=== PATIENT | female | born 1995 | race Caucasian/White ===

== ENCOUNTER 2021-04-04 20:06 | Emergency (ER) | payer OTHER ==
[~2021-04-04] VITALS: Ht 167.6 cm; Wt 72.7 kg
--- NOTE | 2021-04-04 20:28 | PHYS DOC ---
General Adult EDM: Chief Complaint: SHORTNESS OF BREATH HPI: HPI: Patient is a 25-year-old female who presents to the emergency department short for shortness of breath. Patient reports wheezing. She is able to speak in full clear sentences. Patient is also reporting a dry cough, describing bronchospasm, fevers, nausea, sick exposures. Review of Systems: Review of Systems: 14 body systems of the review of systems have been reviewed. See HPI for pertinent positive and negative responses, otherwise all other systems are n egative, nonpertinent or noncontributory Heart Score: C/O Chest Pain: No Risk Factors: Risk Factors: DM, Current or recent (<one month) smoker, HTN, HLP, family history of CAD, obesity. Risk Scores: Score 0 - 3: 2.5% MACE over next 6 weeks - Discharge Home Score 4 - 6: 20.3% MACE over next 6 weeks - Admit for Clinical Observation Score 7 - 10: 72.7% MACE over next 6 weeks - Early Invasive Strategies Physical Exam: PE: Constitutional: Well developed, well nourished, no acute distress, non-toxic appearance. [] HENT: Normocephalic, atraumatic, bilateral external ears normal, oropharynx moist, no oral exudates, nose normal. [] Eyes: PERRL, EOMI, conjunctiva normal, no discharge. [] Neck: Normal range of motion, no tenderness, supple, no stridor. [] Cardiovascular:Heart rate tachycardic rhythm, no murmur [] Lungs & Thorax: Wheezing noted throughout Abdomen: Bowel sounds normal, soft, no tenderness, no masses, no pulsatile masses. [] Skin: Warm, dry, no erythema, no rash. [] Back: Normal range of motion Extremities: No tenderness, no cyanosis, no clubbing, ROM intact, no edema. [] Neurologic: Alert and oriented X 3, normal motor function, normal sensory function, no focal deficits noted. [] Psychologic: Affect normal, judgement normal, mood normal. [] Current Patient Data: Labs: Laboratory Tests Test 04/04/21 20:18 04/04/21 21:24 04/04/21 21:37 White Blood Count 4.9 x10^3/uL Red Blood Count 4.66 x10^6/uL Hemoglobin 14.9 g/dL Hematocrit 42.4 % Mean Corpuscular Volume 91 fL Mean Corpuscular Hemoglobin 32 pg Mean Corpuscular Hemoglobin Concent 35 g/dL Red Cell Distribution Width 13.4 % Platelet Count 176 x10^3/uL Neutrophils (%) (Auto) 59 % Lymphocytes (%) (Auto) 29 % Monocytes (%) (Auto) 10 % Eosinophils (%) (Auto) 1 % Basophils (%) (Auto) 1 % Neutrophils # (Auto) 2.9 x10^3/uL Lymphocytes # (Auto) 1.4 x10^3/uL Monocytes # (Auto) 0.5 x10^3/uL Eosinophils # (Auto) 0.0 x10^3/uL Basophils # (Auto) 0.0 x10^3/uL D-Dimer (Maisha) 0.31 ug/mlFEU Sodium Level 138 mmol/L Potassium Level 3.4 mmol/L Chloride Level 101 mmol/L Carbon Dioxide Level 26 mmol/L Anion Gap 11 Blood Urea Nitrogen 6 mg/dL Creatinine 1.0 mg/dL Estimated GFR (Cockcroft-Gault) 67.6 BUN/Creatinine Ratio 6 Glucose Level 93 mg/dL Calcium Level 8.2 mg/dL Total Bilirubin 0.6 mg/dL Aspartate Amino Transf (AST/SGOT) 23 U/L Alanine Aminotransferase (ALT/SGPT) 27 U/L Alkaline Phosphatase 61 U/L Troponin I High Sensitivity < 4 ng/L Total Protein 7.5 g/dL Albumin 3.7 g/dL Albumin/Globulin Ratio 1.0 Serum Test, Qualitative Negative SARS-CoV-2 Antigen (Rapid) Positive Influenza Type A Antigen Negative Influenza Type B Antigen Negative Current Medications Medications (Trade) Dose Ordered Sig/[place] Route PRN Reason Start Time Stop Time Status Last Admin Dose Admin Methylprednisolone Sodium Succinate (SOLU-Medrol 125MG VIAL) 125 mg 1X ONCE IV 04/04/21 20:30 04/04/21 20:46 DC 04/04/21 20:50 Albuterol/ Ipratropium (Duoneb) 3 ml 1X ONCE NEB 04/04/21 20:30 04/04/21 20:46 DC 04/04/21 21:14 Acetaminophen (Tylenol) 1,000 mg 1X ONCE PO 04/04/21 20:30 04/04/21 20:46 DC 04/04/21 20:50 Sodium Chloride 1,000 ml @ 1,000 mls/hr 1X ONCE IV 04/04/21 21:30 04/04/21 22:29 04/04/21 21:35 Potassium Chloride (Klor-Con) 20 meq 1X ONCE PO 04/04/21 22:00 04/04/21 22:01 DC Sodium Chloride 1,000 ml @ 1,000 mls/hr 1X ONCE IV 04/04/21 22:30 04/04/21 23:29 EKG: EKG: EKG performed by ER staff at 2056 shows sinus tachycardia with a rate of 123, QTc 420, read by Dr. Mejia, no STEMI at 2100 [] Radiology/Procedures: Radiology/Procedures: []PROCEDURE: PORTABLE CHEST 1V EXAMINATION: Chest radiograph. VIEWS: Single AP view of the chest COMPARISON: None INDICATION:25 years, Female, tachycardia, shortness of air. FINDINGS: Normal cardiomediastinal silhouette. No focal consolidation. No pleural effusion or pneumothorax. No acute osseous process. IMPRESSION: No acute cardiopulmonary process. Electronically signed by: Sonia Green DO (04/04/2021 9:33 PM) [facility] DICTATED and SIGNED BY: SONIA GREEN DO DATE: 04/04/[id number] 0 Course & Med Decision Making: Course & Med Decision Making Pertinent Labs and Imaging studies reviewed. (See chart for details) [] Patient presents to the emergency department for shortness of breath, wheezing, dry cough, fevers, nausea. Patient had a sick exposure for COVID-19. Patient denies any COPD or asthma history. Patient is noted to be tachycardic in the emergency department this was treated with IV fluids. Heart rate has improved following administration of fluids, HR 97. She is not hypoxic. She was febrile and this was treated in the ER. She was given Solu-Medrol and a breathing treatment. Work-up in the ER consisted of blood work, chest x-ray, EKG. CBC unremarkable. Potassium was 3.4, this was replaced in the ER. Patient had negative D-dimer. Patient is positive for COVID-19.. Influenza test was negative. Chest x-ray was unremarkable. Patient discharged home with albuterol inhaler. Advised to increase fluids and rest. Advised to take Tylenol for fevers. Is to follow-up with primary care provider. Advised to purchase a pulse oximeter to monitor heart rate and oxygen saturation. I discussed with patient all findings and diagnostic testing as well as the need to follow-up with PCP for further evaluation and treatment or return to the ER if any new or worsening symptoms. Strict return precautions were also discussed at length. Patient voiced understanding and agreement with the plan. Patient is hemodynamically stable at the time of disposition. Dragon Disclaimer: Dragon Disclaimer: This electronic medical record was generated, in whole or in part, using a voice recognition dictation system. Departure Departure Impression: Primary Impression: COVID-19 Disposition: HOME / SELF CARE / HOMELESS Condition: GOOD Referrals: DONNA ALFONSO Jr, MD (PCP) Patient Instructions: Shortness of Breath Additional Instructions: You were seen in the emergency department for shortness of breath, cough, fevers, nausea. Your potassium level was mildly decreased. This was replaced in the ER. Ensure that you are eating potassium rich foods at home like green vegetables and bananas. Your Covid test was positive in the ER. You will need to self isolate for 10 days past symptom onset. For your fevers she can take Tylenol at home. Increase your fluids and rest. Your chest x-ray did not show a pneumonia at this time. I would advise you to follow-up with your primary care provider tomorrow regarding your ER visit. I would purchase a pulse oximeter from the pharmacy to monitor your heart rate and oxygen saturations at home. You are being discharged home with an albuterol inhaler that you can use as needed for shortness of breath or wheezing. Return to the emergency department if you develop worsening of your shortness of breath, chest pain, palpitations, high fevers refractory to treatment, weakness or lethargy, intractable nausea or vomiting, dizziness or lightheadedness. You have been tested for or diagnosed with COVID-19. It is an infection caused by a new type of coronavirus. COVID-19 will cause cold-like or mild flu symptoms in most. It can cause more severe symptoms like problems breathing in some. There is no treatment for COVID-19. The body will clear the infection over time. Self-care will help to ease discomfort. Steps to Take: Self-Care Rest as needed. Healthy habits may help you feel better. Steps include: Choose healthy foods including fruits and vegetables. Drink water throughout the day. Get plenty of sleep each night. If you smoke, try to quit. It may ease breathing. Avoid alcohol. Keep Others Healthy The virus can spread to others. Droplets are released every time you sneeze or cough. The droplets can get into the mouth, nose, or eyes of people near you and lead to infection. To lower the chances of spreading COVID-19 to others: Stay at home until your doctor has said it is safe to leave. If you tested positive this will mean staying isolated until both of the following are true: At least 7 days have passed since the start of illness. You are free of fever for at least 72 hours without the use of medicine. During this time: - Avoid public areas, events, or transportation. Do not return to work or school until your doctor has said it is safe to do so. - Call ahead if you need to go to a medical center. Let them know you may have COVID-19. It will help them guide you where to go. They may also ask you to wear a facemask when you come to the office. - If you call for emergency medical services, let them know you may have COVID- 19. While at home: - Try to avoid close contact with others. Stay about 6 feet away. - If possible, spend most of your time in a separate room from others. - Use a face mask if you will be in close contact with others such as sharing a room or vehicle. - Have someone wipe down common surfaces in the home. Use household professor of communication every day on areas like doorknobs, counters, or sinks. - Cough or sneeze into a tissue. Throw the tissue away right after use. If a tissue is not available, cough or sneeze into your elbow. - Wash your hands often. Wash them after sneezing or coughing. Use soap and water and wash for at least 20 seconds. Alcohol based hand exhibit cleaner can be used if soap and water is not available. - Do not prepare food for others. Avoid sharing personal items like forks, spoons, or toothbrushes. - Avoid close contact with pets while you are sick. There is no evidence of the virus passing to pets. This is a safety step until more is known about this virus. Isolation can be frustrating. Social interaction can help. Keep in touch with friends and family through phone and tech options. You can still interact with others in your home, just keep a safe distance of about 6 feet. Follow-up: Your doctors office will check in with you to see if there are any changes in your health. You may be asked to keep track of symptoms to share with them. They will also let you know when you are clear to be in public again. Problems to Look Out For: Contact your doctor if your recovery is not going as you expect. Get emergency care if you have problems such as: - Trouble breathing - Nonstop chest pain or pressure - Changes in awareness, confusion, or problems waking - Lips or face have bluish color - Worsening of symptoms If you think you have an emergency, call for emergency medical services right away. As taken from [facility] Albuterol Sulfate (Proair Hfa) 8.5 Gm Hfa.aer.ad 2 PUFF IH PRN Q4-6HRS PRN for wheezing for 21 Days, #1 INHALER 0 Refills Prov: ALONDRA BLACKWELL APRN 04/04/21 ALONDRA BLACKWELL APRN Apr 04, 2021 20:28
[2021-04-04 20:30] LABS: BASO % 1 % (0-3); EOS % 1 % (0-3); HEMATOCRIT 42.4 % (36.0-47.0); HEMOGLOBIN 14.9 g/dL (12.0-15.5); LYMPH # 1.4 x10^3/uL (1.0-4.8); LYMPH % 29 % (24-48); MEAN CORPUSCULAR HEMOGLOBIN 32 pg (25-35); MEAN CORPUSCULAR HGB CONC 35 g/dL (31-37); MEAN CORPUSCULAR VOLUME 91 fL (79-100); MONO # 0.5 x10^3/uL (0.0-1.1); MONO % 10 % (0-9); NEUT # 2.9 x10^3/uL (1.8-7.7); NEUT % 59 % (31-73); PLATELET COUNT 176 x10^3/uL (140-400); RED BLOOD COUNT 4.66 x10^6/uL (3.50-5.40); RED CELL DISTRIBUTION WIDTH 13.4 % (11.5-14.5); WHITE BLOOD COUNT 4.9 x10^3/uL (4.0-11.0)
[2021-04-04] MEDS ORDERED: ACETAMINOPHEN 500 MG TABLET PO ONE (20:30)
[2021-04-04] MEDS ORDERED: methylPREDNISolone SOD SUCC PF 125 MG/2 ML VIAL. IV ONE (20:30)
[2021-04-04] MEDS ORDERED: IPRATRPIUM/ALBUTEROL 0.5/2.5MG 3 ML NEBU. NEB ONE (20:30)
[2021-04-04 20:42] LABS: CALCIUM 8.2 mg/dL (8.5-10.1); GFR 67.6; POTASSIUM 3.4 mmol/L (3.5-5.1)
[2021-04-04 20:48] LABS: ALBUMIN 3.7 g/dL (3.4-5.0); TOTAL BILIRUBIN 0.6 mg/dL (0.2-1.0); TOTAL PROTEIN 7.5 g/dL (6.4-8.2)
[2021-04-04 20:53] LABS: PREG TEST PT QUAL NEGATIVE (NEG)
[2021-04-04] MEDS ORDERED: IV NORMAL SALINE 1000ML BAG 1,000 ML IV ONE ×2 (21:30→22:30)
--- NOTE | 2021-04-04 21:35 | RAD ---
EXAMINATION: Chest radiograph. VIEWS: Single AP view of the chest COMPARISON: None INDICATION:25 years, Female, tachycardia, shortness of air. FINDINGS: Normal cardiomediastinal silhouette. No focal consolidation. No pleural effusion or pneumothorax. No acute osseous process. IMPRESSION: No acute cardiopulmonary process. Electronically signed by: Robert Green DO (04/04/2021 9:33 PM) [facility]
[2021-04-04 21:57] LABS: INFLUENZA A PATIENT NEGATIVE (NEGATIVE); INFLUENZA B PATIENT NEGATIVE (NEGATIVE)
[2021-04-04] MEDS ORDERED: POTASSIUM CHLORIDE 20 MEQ TABLET.ER. PO ONE (22:00)
[2021-04-04] MEDS ORDERED: ALBU2.5V8 IH (22:11)
[2021-04-04 23:15] VITALS: BP 109/59
--- NOTE | 2021-04-05 00:29 | EKG ---
[facility] [address] [place] [address] Test Date: 2021-04-04 Test Time: 20:57:32 Pat Name: KIERAN STINSON Department: Room: Gender: F Area Captain: : 1995 Requested By: ALONDRA BLACKWELL Order Number: [id number] Reading MD: Kevin Bee Measurements Intervals [place] Rate: 123 P: 53 AR: 136 QRS: 90 QRSD: 78 T: 5 QT: 290 QTc: 420 Interpretive Statements SINUS TACHYCARDIA Electronically Signed On 04-06-2021 7:19:17 NURSE WOUND by Kevin Bee
== END 2021-04-04 23:42 | disposition home or self-care (01) ==
LOC: ER 20:06
DX: U07.1 COVID-19 (principal)
CPT/HCPCS: 36415; 71045; 80053; 84484; 84703; 85025; 85379; 87426; 87804; 93005; 94640; 96361; 96374; 99285; J2930; J7030